=== PATIENT | female | born 1995 | race American Indian/Alaskan Native ===

== ENCOUNTER 2019-03-24 17:50 | Emergency (ER) | payer SELFPAY ==
[2019-03-24] MEDS ORDERED: ZOFRAN ODT PO ONE (17:58)
--- NOTE | 2019-03-24 17:58 | Event Note ---
ED Screening Note Date of service: 03/24/19 Time: 17:53 ED Screening Note: This is a 23 y.o. F. that presents with nausea and vomiting and generalized pain x 4 days. [facility] 02/03/2019, [facility] asthma, bronchitis Current smoker This initial assessment/diagnostic orders/clinical plan/treatment(s) is/are subject to change based on patients health status, clinical progression and re- assessment by fellow clinical providers in the ED. Further treatment and workup at subsequent clinical providers discretion. Patient/guardian urged not to elope from the ED as their condition may be serious if not clinically assessed and managed. Initial orders include: Labs and CT of abdomen Given zofran odt
[2019-03-24] MEDS ORDERED: ZOFRAN ODT ONE (18:01)
[2019-03-24 18:20] LABS: Basophils # (Auto) 0.1 K/mm3 (0.0-0.1); Basophils % (Auto) 1.1 % (0.0-1.8); Eosinophils % (Auto) 0.2 % (0.0-4.3); Hematocrit 41.3 % (30.3-42.9); Lymphocytes # (Auto) 2.7 K/mm3 (1.2-5.4); Lymphocytes % (Auto) 37.1 % (13.4-35.0); Mean Corpuscular HGB Conc 34 % (30-34); Mean Corpuscular Volume 91 fl (79-97); Monocytes # (Auto) 0.4 K/mm3 (0.0-0.8); Monocytes % (Auto) 5.5 % (0.0-7.3); Platelet Count 298 K/mm3 (140-440); Red Blood Count 4.53 M/mm3 (3.65-5.03); Red Cell Distribution Width 13.2 % (13.2-15.2)
[2019-03-24 18:35] LABS: Alanine Aminotransferase 10 units/L (7-56); Albumin 4.3 g/dL (3.9-5); BUN/Creatinine Ratio 10; Blood Urea Nitrogen 5 mg/dL (7-17); Calcium 9.9 mg/dL (8.4-10.2); Hemolysis Index 35
[2019-03-24 19:16] LABS: Bilirubin,Urine NEG (Negative); Blood,Urine NEG (Negative); Color,Urine Yellow (Yellow); Mucus,Urine FEW /HPF; Protein,Urine <15 mg/dL mg/dL (Negative); RBC,Urine < 1.0 /HPF (0.0-6.0); Urobilinogen,Urine < 2.0 mg/dL (<2.0); WBC,Urine < 1.0 /HPF (0.0-6.0)
[2019-03-24] MEDS ORDERED: PEPCID IV ONE (19:43)
[2019-03-24] MEDS ORDERED: NACL 0.9% 1000 ML 1,000 ML IV ONE (19:43)
[2019-03-24] MEDS ORDERED: BENTYL PO ONE (19:44)
--- NOTE | 2019-03-24 20:19 | Cat Scan Report ---
CT ABDOMEN AND PELVIS WITHOUT CONTRAST INDICATION: MAIN: left flank pain, constipation, nausea, vomiting. . TECHNIQUE: Axial CT images were obtained through the abdomen and pelvis without IV contrast. All CT scans at [facility] location are performed using CT dose reduction for ALARA by means of automated exposure control. COMPARISON: None available. FINDINGS: LOWER CHEST: No significant abnormality. LIVER: No significant abnormality. GALLBLADDER: No significant abnormality. BILE DUCTS: No significant abnormality. PANCREAS: No significant abnormality. SPLEEN: No significant abnormality. ADRENALS: No significant abnormality. RIGHT KIDNEY and URETER: No significant abnormality. LEFT KIDNEY and URETER: No significant abnormality. STOMACH and SMALL BOWEL: No significant abnormality. COLON: Moderate amount of solid stool characteristic for constipation. APPENDIX: Well-visualized and is normal PERITONEUM: Small amount of free pelvic fluid No free air. No fluid collection. LYMPH NODES: No significant adenopathy. AORTA and ARTERIES: No significant abnormality. IVC and VEINS: No significant abnormality. Several calcified bilateral pelvic phleboliths. URINARY BLADDER: No significant abnormality. REPRODUCTIVE ORGANS: 2 cm bilateral ovarian cysts ADDITIONAL FINDINGS: Rectus muscle diastases with small fat-containing umbilical hernia SKELETAL SYSTEM: No significant abnormality. IMPRESSION: 1. Moderate constipation. 2. Bilateral 2 cm ovarian cysts with small amount of free fluid. 3. No urinary tract calculi or hydronephrosis. Signer Name: Tanvir Mendez MD Signed: 03/24/2019 8:15 PM Workstation Name: [id number]
[2019-03-24] MEDS ORDERED: TYLENOL PO ONE (22:07)
[2019-03-24] MEDS ORDERED: ULTRAM PO ONE (22:08)
--- NOTE | 2019-03-24 22:13 | Emergency Department Report ---
ED General Adult HPI - General Chief complaint: Nausea/Vomiting/Diarrhea Stated complaint: N/V Time Seen by Provider: 03/24/19 17:53 Source: patient, EMS Mode of arrival: Wheelchair Limitations: No Limitations - History of Present Illness Initial comments: Patient is a 23-year-old -[place] female with no past medical history except asthma who presents to the ED with painful swollen gums and multiple toothaches, for the last 3 days. Patient also complains of left long pain that it is left lower quadrant and suprapubic area with nausea and vomiting for the last 2 days. Patient denies fever, chills, diarrhea, dizziness, sore throat, sinus congestion, headache, chest pain,shortness of breath, palpitations, seizures or syncope. MD Complaint: dental pain, flank pain, nausea and vomiting -: Gradual, week(s) (1) Location: mouth, abdomen Severity scale (0 -10): 7 Quality: aching, sharp Consistency: constant Improves with: none Worsens with: none Associated Symptoms: denies other symptoms, loss of appetite, malaise, nausea/vomiting. denies: confusion, chest pain, cough, diaphoresis, fever/chills, headaches, rash, seizure, shortness of breath Treatments Prior to Arrival: none - Related Data Previous Rx's Medication Instructions Recorded Last Taken Type Clindamycin [Clindamycin CAP] 300 mg PO Q6HR #80 capsule 03/24/19 Unknown Rx Ondansetron [Zofran Odt] 4 mg PO Q8HR PRN #15 tab.rapdis 03/24/19 Unknown Rx traMADol [Ultram] 50 mg PO Q6HR PRN #15 tablet 03/24/19 Unknown Rx Allergies Allergy/AdvReac Type Severity Reaction Status Date / Time shellfish derived Allergy Anaphylaxis Verified 03/24/19 18:03 ED Review of Systems ROS: Stated complaint: N/V Other details as noted in HPI Comment: All other systems reviewed and negative Constitutional: denies: chills, fever Eyes: denies: eye pain, eye discharge, vision change ENT: dental pain, congestion, other (swollen gums). denies: ear pain, throat pain Respiratory: denies: cough, shortness of breath, wheezing Cardiovascular: denies: chest pain, palpitations Endocrine: no symptoms reported Gastrointestinal: abdominal pain, nausea, vomiting, other (flank pain). denies: diarrhea Genitourinary: denies: urgency, dysuria, discharge Musculoskeletal: denies: back pain, joint swelling, arthralgia Skin: denies: rash, lesions Neurological: denies: headache, weakness, paresthesias Psychiatric: denies: anxiety, depression Hematological/Lymphatic: denies: easy bleeding, easy bruising ED Past Medical Hx - Past Medical History Previous Medical History?: Yes Hx Asthma: Yes Additional medical history: Implenon, Bronchitis - Surgical History Past Surgical History?: Yes Additional Surgical History: x 1 - Social History Smoking Status: Current Every Day Smoker Substance Use Type: Alcohol - Medications Home Medications: Home Medications Medication Instructions Recorded Confirmed Last Taken Type Clindamycin [Clindamycin CAP] 300 mg PO Q6HR #80 capsule 03/24/19 Unknown Rx Ondansetron [Zofran Odt] 4 mg PO Q8HR PRN #15 tab.rapdis 03/24/19 Unknown Rx traMADol [Ultram] 50 mg PO Q6HR PRN #15 tablet 03/24/19 Unknown Rx ED Physical Exam - General Limitations: No Limitations General appearance: alert, in no apparent distress - Head Head exam: Present: atraumatic, normocephalic, normal inspection - Eye Eye exam: Present: normal appearance, PERRL, EOMI Pupils: Present: normal accommodation - ENT ENT exam: Present: normal exam, mucous membranes moist, TM's normal bilaterally, normal external ear exam, other (Swollen tender maxillary and mandibular gums and dental acries) - Neck Neck exam: Present: normal inspection, full ROM, lymphadenopathy. Absent: tenderness, meningismus - Respiratory Respiratory exam: Present: normal lung sounds bilaterally. Absent: respiratory distress, wheezes, rales, rhonchi, chest wall tenderness, accessory muscle use, prolonged expiratory - Cardiovascular Cardiovascular Exam: Present: regular rate, normal rhythm, normal heart sounds. Absent: systolic murmur, diastolic murmur, rubs, gallop - GI/Abdominal GI/Abdominal exam: Present: soft, tenderness (Mildly tender left flank and suprapubic area), normal bowel sounds. Absent: distended, guarding, rebound, hyperactive bowel sounds, hypoactive bowel sounds, organomegaly, mass, pulsatile mass - Rectal Rectal exam: Present: deferred - Extremities Exam Extremities exam: Present: normal inspection, full ROM, normal capillary refill - Back Exam Back exam: Present: normal inspection, full ROM. Absent: tenderness, CVA tenderness (R), muscle spasm, paraspinal tenderness, vertebral tenderness - Neurological Exam Neurological exam: Present: alert, oriented X3, CN II-XII intact, normal gait, reflexes normal - Psychiatric Psychiatric exam: Present: normal affect, normal mood - Skin Skin exam: Present: warm, dry, intact, normal color. Absent: rash ED Course Vital Signs 03/24/19 17:56 Temperature 99 F Pulse Rate 59 L Respiratory 18 Rate Blood Pressure 114/87 O2 Sat by Pulse 100 Oximetry - Reevaluation(s) Reevaluation #1: 03/24/19 22:21 This is a 23-year-old female who presented to the ED with left lung pain, nausea and vomiting as well as dental pain. Patient is alert and oriented 3 and is not in distress. Lab test results were reviewed including urinalysis, and are unremarkable. Patient was treated for pain in the ED, as well as for nausea and vomiting. Abdomen pelvis CT scan without contrast shows 2 cm bilateral ovarian cysts and constipation. The rest of the abdomen and pelvis CT scan without contrast shows unremarkable exam. Patient was discharged home on medications including pain medicine and antibiotics for dental abscesses, and was advised to follow-up with primary care physician and [facility] physician in 5-7 days for reevaluation or return to the ED immediately if symptoms get worse. ED Medical Decision Making - Lab Data Result diagrams: 03/24/19 18:02 03/24/19 18:02 - Radiology Data Radiology results: report reviewed, image reviewed Findings [address] [address] Cat Scan Report Signed Patient: BELA SELLERS MR#: [id number] : 1995 Acct:[id number] Age/Sex: 23 / F ADM Date: 03/24/19 Loc: ED Attending Dr: Ordering Physician: DO FAITH Date of Service: 03/24/19 Procedure(s): CT abdomen pelvis wo con Accession Number(s): [id number] cc: DO FAITH CT ABDOMEN AND PELVIS WITHOUT CONTRAST INDICATION: MAIN: left flank pain, constipation, nausea, vomiting. . TECHNIQUE: Axial CT images were obtained through the abdomen and pelvis without IV contrast. All CT scans at this location are performed using CT dose reduction for ALARA by means of automated exposure control. COMPARISON: None available. FINDINGS: LOWER CHEST: No significant abnormality. LIVER: No significant abnormality. GALLBLADDER: No significant abnormality. BILE DUCTS: No significant abnormality. PANCREAS: No significant abnormality. SPLEEN: No significant abnormality. ADRENALS: No significant abnormality. RIGHT KIDNEY and URETER: No significant abnormality. LEFT KIDNEY and URETER: No significant abnormality. STOMACH and SMALL BOWEL: No significant abnormality. COLON: Moderate amount of solid stool characteristic for constipation. APPENDIX: Well-visualized and is normal PERITONEUM: Small amount of free pelvic fluid No free air. No fluid collection. LYMPH NODES: No significant adenopathy. AORTA and ARTERIES: No significant abnormality. IVC and VEINS: No significant abnormality. Several calcified bilateral pelvic phleboliths. URINARY BLADDER: No significant abnormality. REPRODUCTIVE ORGANS: 2 cm bilateral ovarian cysts ADDITIONAL FINDINGS: Rectus muscle diastases with small fat-containing umbilical hernia SKELETAL SYSTEM: No significant abnormality. IMPRESSION: 1. Moderate constipation. 2. Bilateral 2 cm ovarian cysts with small amount of free fluid. 3. No urinary tract calculi or hydronephrosis. Signer Name: Tanvir Mendez MD Signed: 03/24/2019 8:15 PM Workstation Name: [id number] Transcribed By: TL Dictated By: Tanvir Mendez MD Electronically Authenticated By: Tanvir Mendez MD Signed Date/Time: 03/24/192014 - Medical Decision Making This is a 23-year-old female who presented to the ED with left lung pain, nausea and vomiting as well as dental pain. Patient is alert and oriented 3 and is not in distress. Lab test results were reviewed including urinalysis, and are unremarkable. Patient was treated for pain in the ED, as well as for nausea and vomiting. Abdomen pelvis CT scan without contrast shows 2 cm bilateral ovarian cysts and constipation. The rest of the abdomen and pelvis CT scan without contrast shows unremarkable exam. Patient was discharged home on medications including pain medicine and antibiotics for dental abscesses, and was advised to follow-up with primary care physician and [facility] physician in 5-7 days for reevaluation or return to the ED immediately if symptoms get worse. - Differential Diagnosis kidney stones, acute UTI, Dental abscess, Gingivitis, Colitis Critical care attestation.: If time is entered above; I have spent that time in minutes in the direct care of this critically ill patient, excluding procedure time. ED Disposition Clinical Impression: Dental abscess, Acute gingivitis, Bilateral ovarian cysts, Nausea and vomiting in adult, Acute left flank pain Disposition: TO HOME OR SELFCARE Is pt being admited?: No Does the pt Need Aspirin: No Condition: Stable Instructions: Flank Pain (ED), Gingivitis (ED), Ovarian Cyst (ED), Acute Nausea and Vomiting (ED) Additional Instructions: Take medications with food, drink plenty of fluids and follow up with your Primary care Physician in 7-10 days for reevaluation. Follow up with a dentist for your dental abscesses Prescriptions: Clindamycin [Clindamycin CAP] 300 mg PO Q6HR #80 capsule traMADol [Ultram] 50 mg PO Q6HR PRN #15 tablet PRN Reason: Pain Ondansetron [Zofran Odt] 4 mg PO Q8HR PRN #15 tab.rapdis PRN Reason: Nausea Referrals: [facility] [Outside] - 3-5 Days Time of Disposition: 22:11 Print Language: KOREAN
[2019-03-25 03:18] VITALS: BP 105/48
== END 2019-03-24 22:50 | disposition home or self-care (01) ==
LOC: ED 17:50
DX: K04.7 Periapical abscess without sinus (principal); K05.00 Acute gingivitis, plaque induced; N83.202 Unspecified ovarian cyst, left side; N83.201 Unspecified ovarian cyst, right side; J45.909 Unspecified asthma, uncomplicated; F17.200 Nicotine dependence, unspecified, uncomplicated; Z79.899 Other long term (current) drug therapy; Z91.013 Allergy to seafood
CPT/HCPCS: 36415; 74176; 80053; 81001; 83690; 84703; 85025; 99284; J7030; Q0162